=== PATIENT | male | born 1955 | race Caucasian/White ===

== ENCOUNTER 2021-10-02 14:45 | Outpatient (CLI) | payer MEDICARE, SELFPAY ==
--- NOTE | ~2021-10-02 | XR_ITS ---
EXAMINATION: XR sacrum coccyx min 2V INDICATION: Overactive bladder TECHNIQUE: Three views of the sacrum and coccyx are obtained. COMPARISON: None available FINDINGS: Bone alignment is normal. There is no fracture. An implanted device is present in the right buttock soft tissues. Its lead enters the left pelvis through the left S3 neural foramen. There are partially imaged changes of posterior fusion in the lumbar spine. There is mild osteoarthritis of the hips. IMPRESSION: 1. No acute osseous abnormality. 2. Stimulator device in the right buttock soft tissues with its lead entering the left pelvis through the S3 neural foramen. Reviewed, dictated and finalized at location F. IMPRESSION: 1. No acute osseous abnormality. 2. Stimulator device in the right buttock soft tissues with its lead entering t he left pelvis through the S3 neural foramen.
== END 2021-10-02 14:46 | disposition home or self-care (01) ==
PROVIDERS: PCP Family Medicine; Visit Provider Urology
DX: N32.81 Overactive bladder (principal); Z96.82 Presence of neurostimulator; Z98.1 Arthrodesis status
CPT/HCPCS: 72220